=== PATIENT | female | born 1935 | race Caucasian/White ===

== ENCOUNTER 2017-11-08 09:33 | Observation (INO) | payer MEDICARE, OTHER ==
[~2017-11-08] VITALS: Ht 165.1 cm; Wt 72.5 kg
[~2017-11-08 09:33] MED LIST: ASPI81EC; BENZ100A PO; CEPH500 PO; IBUP600 PO; MULTI VITAMIN1 EACH PO; OXYACE5T PO; PROACE100 PO; ROSU10TA; RXHYDACE PO; RXOXYACE PO
[2017-11-08 10:00] LABS: Chloride (POC) 102 mmol/L (98-108); Creatinine (POC) 0.8 mg/dL (0.6-1.0); Glucose (ISTAT POC) 147 mg/dL (70-99); Hemoglobin (POC) 12.9 g/dL (12.0-16.0); Potassium (POC) 3.9 mmol/L (3.5-5.5); Sodium (POC) 138 mmol/L (135-148); Total CO2 (POC) 26 mmol/L (21-32)
[2017-11-08 10:18] LABS: BASOPHILS ABSOLUTE AUTO 0.03 K/mm3 (0.00-0.23); BASOPHILS PERCENT AUTO 1 % (0-2); EOSINOPHILS ABSOLUTE AUTO 0.24 K/mm3 (0.00-0.68); EOSINOPHILS PERCENT AUTO 5 % (0-6); Hematocrit 38.4 % (33.0-51.0); Hemoglobin 12.8 g/dL (11.5-16.0); IMMATURE GRAN PERCENT AUTO 0 % (0-1); LYMPHOCYTES ABSOLUTE AUTO 1.57 K/mm3 (0.84-5.20); LYMPHOCYTES PERCENT AUTO 31 % (21-46); MONOCYTES ABSOLUTE AUTO 0.54 K/mm3 (0.16-1.47); MONOCYTES PERCENT AUTO 11 % (4-13); Mean Corpuscular HGB Conc 33.3 g/dL (31.5-36.5); Mean Corpuscular Volume 87 fL (80-100); Mean Platelet Volume 9.8 fL (9.1-12.4); NEUTROPHILS ABSOLUTE AUTO 2.76 K/mm3 (1.96-9.15); NEUTROPHILS PERCENT AUTO 54 % (41-73); Platelet Count 278 K/mm3 (150-400); RDW Coefficient Variation 13.1 % (11.7-14.2); RDW Standard Deviation 41.7 fL (35.1-46.3); Red Blood Cell Count 4.41 M/mm3 (3.80-5.20); White Blood Cell Count 5.14 K/mm3 (4.00-11.30)
[2017-11-08 10:26] LABS: Alanine Aminotransfer (ALT/SGP 15 U/L (12-78); Albumin, Blood 3.8 g/dL (3.4-5.0); Albumin/Globulin Ratio 1.1 (0.8-1.8); Alk Phos 63 U/L (50-136); Anion Gap 7 mmol/L (6-16); Aspartate Aminotrans (AST/SGOT 14 U/L (12-37); Bilirubin, Total 0.4 mg/dL (0.1-1.0); Blood Urea Nitrogen 17 mg/dL (8-24); Bun/Creatinine Ratio 21.2 (12.0-20.0); CO2, Blood 27 mmol/L (21-32); Calcium, Blood 9.8 mg/dL (8.5-10.1); Chloride, Blood 106 mmol/L (98-108); Globulin, Blood 3.4 g/dL (2.2-4.0); Glomerular Filtration Rate >60 (60-); Glucose, Blood 142 mg/dL (70-99); Sodium, Blood 140 mmol/L (136-145); Total Protein, Blood 7.2 g/dL (6.4-8.2)
[2017-11-08 10:31] LABS: International Normalized Ratio 1.02; Prothrombin Time Results 10.5 Sec (9.7-11.5)
[2017-11-08] MEDS ORDERED: LIVALO1 MG (14:21)
[2017-11-08] MEDS ORDERED: [UNRECOGNIZED DRUG - CODE] PO (17:56)
[2017-11-09 06:13] LABS: Anion Gap 10 mmol/L (6-16); Blood Urea Nitrogen 22 mg/dL (8-24); Bun/Creatinine Ratio 23.4 (12.0-20.0); CO2, Blood 26 mmol/L (21-32); Calcium, Blood 9.4 mg/dL (8.5-10.1); Chloride, Blood 105 mmol/L (98-108); Creatinine, Blood 0.94 mg/dL (0.40-1.00); Glomerular Filtration Rate >60 (60-); Glucose, Blood 146 mg/dL (70-99); Sodium, Blood 141 mmol/L (136-145)
[2017-11-09] MEDS ORDERED: CHOL10002 PO (17:35)
[2017-11-09] MEDS ORDERED: PANT40 PO (17:36)
[2017-11-09] MEDS ORDERED: METF500C PO (17:37)
[2017-11-09] MEDS ORDERED: Xalatan2.5 ML BOTHEYES (17:38)
[2017-11-09] MEDS ORDERED: LISI5 PO (17:38)
[2017-11-09] MEDS ORDERED: CLOP75 PO (17:39)
== END 2017-11-09 18:43 | disposition home or self-care (01) ==
LOC: ER 09:33 → MEDS 09:34 → ENPENDDIS 11-09 17:37 → MEDS 11-09 18:43
PROVIDERS: Emergency Medicine; Internal Medicine
DX: G45.9 Transient cerebral ischemic attack, unspecified (principal); E78.5 Hyperlipidemia, unspecified; R11.0 Nausea; E11.9 Type 2 diabetes mellitus without complications; I10 Essential (primary) hypertension; Z79.82 Long term (current) use of aspirin; Z79.899 Other long term (current) drug therapy; Z88.8 Allergy status to other drugs, medicaments and biological substances
CPT/HCPCS: 36415; 70460; 71045; 80047; 80048; 80053; 82947; 83880; 85014; 85025; 85610; 93005; 93010; 93306; 93880; 99285-25; G0378; J7030; Q9967

== ENCOUNTER 2021-05-31 06:47 | Day surgery (SDC) | payer MEDICARE, OTHER ==
[~2021-05-31] VITALS: Ht 162.6 cm; Wt 69.5 kg
[~2021-05-31 06:47] MED LIST changes: +CHOL10002 PO; +CLOP75 PO; +LISI5 PO; +LIVALO1 MG; +METF500C PO; +PANT40 PO; +Xalatan2.5 ML BOTHEYES; +[UNRECOGNIZED DRUG - CODE] PO
[2021-05-31] MEDS ORDERED: Aspir 8181 MG PO (07:44)
== END 2021-05-31 09:10 | disposition home or self-care (01) ==
LOC: ORSCSDS 06:47
PROVIDERS: Orthopaedic Surgery
PROC: 01N50ZZ Release Median Nerve, Open Approach (ICD-10-PCS; principal; 2021-05-31 08:00)
DX: G56.03 Carpal tunnel syndrome, bilateral upper limbs (principal); I10 Essential (primary) hypertension; K21.9 Gastro-esophageal reflux disease without esophagitis; E11.9 Type 2 diabetes mellitus without complications; Z79.84 Long term (current) use of oral hypoglycemic drugs; Z79.82 Long term (current) use of aspirin; Z79.899 Other long term (current) drug therapy
CPT/HCPCS: 82947; J0690; J2704

== ENCOUNTER 2021-08-02 06:23 | Day surgery (SDC) | payer MEDICARE, OTHER ==
[~2021-08-02] VITALS: Ht 162.6 cm; Wt 71.8 kg
[~2021-08-02 06:23] MED LIST changes: +Aspir 8181 MG PO
--- NOTE | 2021-08-02 07:11 | NUR ---
08/02/21 0711 Ivonne Montgomery CALL LIGHT WITHIN REACH. IV ATTEMPT X3 ON RIGHT HAND. TWO IV ATTEMPTS INFILTRATED. THIRD IV ATTEMPT SUCCESSFUL. PT TOLERATED IV ATTEMPTS WELL.
== END 2021-08-02 08:16 | disposition home or self-care (01) ==
LOC: ORSCSDS 06:23
PROVIDERS: Orthopaedic Surgery
PROC: 01N50ZZ Release Median Nerve, Open Approach (ICD-10-PCS; principal; 2021-08-02 07:30)
DX: G56.02 Carpal tunnel syndrome, left upper limb (principal); K21.9 Gastro-esophageal reflux disease without esophagitis; E11.9 Type 2 diabetes mellitus without complications; Z79.82 Long term (current) use of aspirin; Z79.84 Long term (current) use of oral hypoglycemic drugs; Z79.899 Other long term (current) drug therapy
CPT/HCPCS: 82947; J7120

== ENCOUNTER → 2023-01-26 | Outpatient (CLI) | payer MEDICARE, OTHER | END | disposition home or self-care (01) | LOC: LAB SHORT 15:03 → LAB 15:03 | DX: E11.9 Type 2 diabetes mellitus without complications (principal) | CPT/HCPCS: 83036 ==

== ENCOUNTER 2023-08-30 09:45 | Emergency (ER) | payer MEDICARE, OTHER ==
[~2023-08-30] VITALS: Ht 162.6 cm; Wt 68.0 kg
[2023-08-30 11:00] VITALS: BP 156/66
== END 2023-08-30 12:44 | disposition home or self-care (01) ==
LOC: ER 09:45
DX: R29.898 Other symptoms and signs involving the musculoskeletal system (principal); R73.9 Hyperglycemia, unspecified

== ENCOUNTER → 2025-01-08 | Outpatient (CLI) | payer MEDICARE, OTHER ==
[2025-01-08 10:42] LABS: Source, Urine Clean Catch
[2025-01-08 13:44] LABS: Bilirubin, Urine Neg (Neg); Color, Urine Yellow (P-Yellow); Glucose Qualitative, Urine Neg (Neg); Ketones, Urine Neg (Neg); Leukocyte Esterase, Urine 2+ (Neg); Protein, Urine 1+ (Neg); Specific Gravity, Urine 1.015 (1.003-1.022); Urobilinogen, Urine NORM (Normal)
== END | disposition home or self-care (01) ==
LOC: LAB SHORT 10:40 → LAB 10:40
PROVIDERS: Internal Medicine
DX: R33.9 Retention of urine, unspecified (principal)
CPT/HCPCS: 81001; 87077; 87086; 87186

== ENCOUNTER 2025-01-24 15:40 | Emergency (ER) | payer MEDICARE, OTHER ==
[~2025-01-24] VITALS: Ht 193 cm; Wt 68.0 kg
[2025-01-24 15:49] VITALS: BP 166/77
[2025-01-24] MEDS ORDERED: LOSA25 PO (15:54)
[2025-01-24] MEDS ORDERED: FentaNYL Citrate 50 MCG/ML 2 ML Injection IV PRN (16:55)
[2025-01-24] MEDS ORDERED: SENNA LAXATIVE8.6 MG PO (17:57)
[2025-01-24] MEDS ORDERED: HYDR1TAB94 PO (17:57)
[2025-01-24] MEDS ORDERED: POLY500 PO (17:57)
[2025-01-24] MEDS ORDERED: ONDA4 PO (17:57)
[2025-01-24] MEDS ORDERED: HYDROcodone 10-APAP 325 TAB PO ONE (18:40)
[2025-01-24] MEDS ORDERED: Ondansetron 4 MG SoluTab SL ONE (18:40)
== END 2025-01-24 19:02 | disposition home or self-care (01) ==
LOC: ER 15:40
DX: S42.341A Displaced spiral fracture of shaft of humerus, right arm, initial encounter for closed fracture (principal); Z79.01 Long term (current) use of anticoagulants; Z79.84 Long term (current) use of oral hypoglycemic drugs; W18.30XA Fall on same level, unspecified, initial encounter
CPT/HCPCS: 23605; 73060; 96374-59; 99284-25; A9270; J3010

== ENCOUNTER → 2025-03-09 | Outpatient (CLI) | payer MEDICARE, OTHER ==
[~2025-03-09] MED LIST changes: +HYDR1TAB94 PO; +LOSA25 PO; +ONDA4 PO; +POLY500 PO; +SENNA LAXATIVE8.6 MG PO
[2025-03-10 08:39] LABS: Campylobacter Sp Not Detected (NOT DETECT); E. Coli O157 Not Detected (NOT DETECT); Enteroaggregative E. coli-EAEC Not Detected (NOT DETECT); Enteropathogenic E. coli-EPEC Not Detected (NOT DETECT); Enterotoxigenic E. coli-ETEC Not Detected (NOT DETECT); Salmonella Sp Not Detected (NOT DETECT); Shiga Toxin-prod E. coli-STEC Not Detected (NOT DETECT); Shigella/Enteroin E. coli-EIEC Not Detected (NOT DETECT); Vibrio Sp Not Detected (NOT DETECT)
== END ==
LOC: LAB 08:00 → LAB SHORT 08:00
PROVIDERS: Internal Medicine
DX: R19.7 Diarrhea, unspecified (principal)
CPT/HCPCS: 87507